=== PATIENT | female | born 1955 | race Caucasian/White ===

== ENCOUNTER → 2016-08-14 | Outpatient (CLI) | payer OTHER ==
--- NOTE | 2016-08-14 08:38 | US ---
Right Upper Quadrant Sonogram August 14, 2016 Indication: Right upper quadrant pain. Findings: The normal size liver, measuring 16.8 cm in the midaxillary line, has normal echogenicity a nd echotexture. No sonographic mass or biliary dilation. The gallbladder is normal. No intraluminal stones, sludge, wall thickening, or sonographic Ford sig n. Common bile duct is normal caliber (4 mm). Portal vein is patent. The abdominal aorta is normal caliber. The right kidney is unremarkable. No hydronephrosis. The right kidney measures 11.2 cm in length x 4. 9 x 3.7 cm axially. No free fluid. The imaged portions of the pancreatic neck, head, and central body are normal. The pa ncreatic tail is obscured by bowel gas. Impression: Normal. No cholelithiasis, biliary dilation, hydronephrosis or free fluid.
== END ==
LOC: FIMAGING 07:16
PROVIDERS: ATTEND Family Medicine
DX: R10.11 Right upper quadrant pain (principal)

== ENCOUNTER → 2016-10-01 | Outpatient (CLI) | payer OTHER | LOC: FIMAGING 07:15 | DX: Z12.31 Encounter for screening mammogram for malignant neoplasm of breast (principal) | CPT/HCPCS: G0202 ==

== ENCOUNTER → 2016-10-02 | Outpatient (CLI) | payer OTHER | LOC: FIMAGING 11:39 | DX: Z03.89 Encounter for observation for other suspected diseases and conditions ruled out (principal) | CPT/HCPCS: G0206 ==

== ENCOUNTER → 2017-03-10 | Outpatient (CLI) | payer OTHER | LOC: FIMAGING 07:45 | PROVIDERS: ATTEND Internal Medicine Gastroenterology | DX: R10.10 Upper abdominal pain, unspecified (principal); K21.9 Gastro-esophageal reflux disease without esophagitis; Z86.010 Personal history of colon polyps | CPT/HCPCS: 78227; A9537 ==

== ENCOUNTER → 2017-10-09 | Outpatient (CLI) | payer OTHER | LOC: FIMAGING 10:55 | PROVIDERS: ATTEND Family Medicine | DX: Z12.31 Encounter for screening mammogram for malignant neoplasm of breast (principal) ==

== ENCOUNTER → 2017-12-18 | Outpatient (CLI) | payer OTHER | LOC: FIMAGING 11:49 | PROVIDERS: ATTEND Podiatrist Primary Podiatric Medicine | DX: M76.61 Achilles tendinitis, right leg (principal) ==

== ENCOUNTER → 2018-04-08 | Outpatient (CLI) | payer OTHER ==
[~2018-04-08] MED LIST: BUPIVACAINE 0.25% 30 ML SDV ONE; LIDOCAINE 1% 300 MG/30 ML SDV ONE
== END ==
LOC: FIMAGING 10:33
PROVIDERS: ATTEND Radiology Diagnostic Radiology
PROC: 3E0U3GC Introduction of Other Therapeutic Substance into Joints, Percutaneous Approach (ICD-10-PCS; principal; 2018-04-08)
DX: S93.491A Sprain of other ligament of right ankle, initial encounter (principal)

== ENCOUNTER 2018-06-24 12:19 | Day surgery (SDC) | payer OTHER ==
[2018-06-24] MEDS ORDERED: LR 1,000 ML IV ONE (12:31)
[2018-06-24] MEDS ORDERED: BACITRACIN ZINC 14.2 GM OINTTUBE TP ONE (13:51)
[2018-06-24] MEDS ORDERED: MIDAZOLAM 2 MG/2 ML VIAL IVP ONE (14:28)
[2018-06-24] MEDS ORDERED: SCOPOLAMINE HYDROBROMIDE 1 MG/3 DAYS PATCH TD SCH (14:30)
--- NOTE | 2018-06-24 14:32 | PDANEPAE ---
ANE History of Present Illness 62 yo with right achilles tendon ANE Past Medical History - Cardiovascular History Hx Hypertension: Yes Hx Arrhythmias: No Hx Chest Pain: No Hx Coronary Artery / Peripheral Vascular Disease: No Hx CHF / Valvular Disease: No Hx Palpitations: No - Pulmonary History Hx COPD: No Hx Asthma/Reactive Airway Disease: No Hx Recent Upper Respiratory Infection: No Hx Oxygen in Use at Home: No Hx Sleep Apnea: No Sleep Apnea Screening Result - Last Documented: Negative - Neurologic History Hx Cerebrovascular Accident: No Hx Seizures: No Hx Dementia: No - Endocrine History Hx Diabetes: No - Renal History Hx Renal Disorders: No - Liver History Hx Hepatic Disorders: No - Neurological & Psychiatric Hx Hx Neurological and Psychiatric Disorders: No - Cancer History Hx Cancer: Yes 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 - Congenital Disorder History Hx Congenital Disorders: No - GI History Hx Gastrointestinal Disorders: Yes Gastrointestinal History Comment: Reflux - Other Health History Other Health History: none - Chronic Pain History Chronic Pain: No - Surgical History Prior Surgeries: none in last 5 yrs ANE Review of Systems Review of systems is: negative Review of Systems: - Exercise capacity METS (RN): 4 METS ANE Patient History - Allergies Allergies/Adverse Reactions: No Known Allergies Allergy (Verified 06/22/18 11:38) - Home Medications Home Medications: Lisinopril [Zestril 2.5 mg] 10/03/11 [Last Taken 06/23/18] Pitavastatin Calcium [Livalo] 10/03/11 [Last Taken 06/22/18] Cholecalciferol Vit D3 06/22/18 [Last Taken 06/23/18] Colestipol HCl 06/22/18 [Last Taken 06/23/18] Famotidine 06/22/18 [Last Taken 06/22/18] Ibuprofen 06/22/18 [Last Taken 06/19/18] Vitamin B Complex 06/22/18 [Last Taken 06/21/18] - NPO status NPO Since - Liquids (Date): 06/24/18 NPO Since - Liquids (Time): 08:30 NPO Since - Solids (Date): 06/23/18 NPO Since - Solids (Time): 19:00 - Anes Hx Anes Hx: no prior problems - Smoking Hx Smoking Status: Never smoked - Alcohol Use Alcohol Use: None - Family Anes Hx Family Hx Anesthesia Complications: none ANE Labs/Vital Signs - Vital Signs Blood Pressure: 137/92 Heart Rate: 74 Respiratory Rate: 16 O2 Sat (%): 98 Height: 167.64 cm Weight: 65.771 kg ANE Physical Exam - Airway Neck exam: FROM Mallampati Score: Class 1 Mouth exam: normal dental/mouth exam - Pulmonary Pulmonary: clear to auscultation - Cardiovascular Cardiovascular: regular rate and rhythym - ASA Status ASA Status: II
[2018-06-24] MEDS ORDERED: ceFAZolin 2 GM/DEXTROSE 100 ML IV ONE (15:15)
--- NOTE | 2018-06-24 15:19 | PDGENHP ---
History and Physical History and Physical: CHIEF COMPLAINT:~Right~ankle~pain, swelling and deformity HISTORY OF PRESENT ILLNESS:~ is a very pleasant 62 y.o.female who presents for right heel pain. She has had this pain for a long time and has tried different shoewear and three rounds of PRP injections with only minimal improvement. She is unable to do any jogging or running because of the pain. PAST MEDICAL HISTORY: N/a PAST SURGICAL HISTORY: No surgery on heel MEDS: none ALLERGIES: NKDA FAMILY HISTORY: Noncontributory REVIEW OF SYSTEMS: Pertinent positives seen in the history of present illness. SOCIAL HISTORY: non-smoker. Alcohol use:No denies~current exercise. PHYSICAL EXAMINATION: TTP at achilles insertion MRI reveals a large degree of~retrocalcaneal bursitis. ~There is some signal change in the substance of the Achilles tendon. ~The insertion does appear to be intact. IMPRESSION:~62 y.o.~female~p/w right insertional calcific Achilles tendinosis PLAN: She has failed conservative management and would like to proceed with surgical debridement. Nick Vigil MD
[2018-06-24] MEDS ORDERED: fentaNYL 100 MCG/2 ML INJ ONE (15:24)
[2018-06-24] MEDS ORDERED: PROPOFOL 200 MG/20 ML VIAL ONE (15:25)
[2018-06-24] MEDS: BUPIVACAINE 0.25% 10 ML SDV ONE ×2 (16:41→17:22)
[2018-06-24] MEDS: LIDOCAINE 1% 300 MG/30 ML SDV ONE ×2 (16:41→17:22)
--- NOTE | 2018-06-24 17:39 | POSTOPPROG ---
Post Op Note Date of Operation: 06/24/18 Surgeon: Nick Vigil Mental Health Social Worker: N/a Anesthesia: GET(General Endotracheal) Pre-op Diagnosis: Right Achilles Tendinopathy Post-op Diagnosis: Same Procedure: Right Achilles tendodebridement, Carol resection, enthesophyte resection Inf/Abcess present in the surg proc area at time of surgery?: No EBL: Minimal
[2018-06-24] MEDS ORDERED: fentaNYL 100 MCG/2 ML INJ IVP PRN (17:41)
[2018-06-24] MEDS ORDERED: HYDROmorphONE/DILAUDID 2 MG/ML INJ IVP PRN (17:41)
[2018-06-24] MEDS ORDERED: NALOXONE HCL 0.4 MG/ML INJ IVP PRN (17:41)
[2018-06-24] MEDS ORDERED: PROMETHAZINE HCL 25 MG/ML INJ IVP PRN (17:41)
--- NOTE | 2018-06-24 18:18 | POSTANESTH ---
Post Anesthetic Evaluation Cardiovascular Status: Normal, Stable Respiratory Status: Normal, Stable Level of Consciousness/Mental Status: Can Participate in Eval Pain Control: Adequate, Prn Tx Ordered Nausea/Vomiting Control: Adequate, Prn Tx Ordered Complications Possibly Related to Anesthesia: None Noted
[2018-06-24 19:33] VITALS: BP 119/95
[2018-06-25] MEDS ORDERED: PATCH REMOVAL 1 EA PATCH TD ONE (14:29)
--- NOTE | 2018-07-05 22:54 | SUROPNOTE ---
[facility] Operative Report - Surgery Orthopaedic Operative Note DOS: 06/24/2018 Attg: Nick Vigil Asst: None Preop Dx: Right Achilles insertional tendinopathy Postop dx: Same Procedure: Right achilles tendon debridement and repair, carlo excision Procedural Note: Consent was reviewed with the patient and she elected to proceed. The patient was taken to OR and transferred to the bed. Anesthesia was induced. A nonsterile tourniquet was applied to the Right thigh. The patient was placed prone. All bony prominences were padded. Neck extension and arm positions were checked. The leg was prepped and draped in typical fashion. A timeout was performed confirming the patient, procedure, antibiotic status, and surgical site. The leg was exsanguinated and the tourniquet raised. A longitudinal incision was created just medial to the midline from 2 cm proximal to the calcaneus, down to a centimeter past the insertion. The paratenon was identified, split, and preserved. The tendon underneath was examined. An enthesophyte was palpable underneath a layer of tendinous material. The tendon was reflected off of the enthesophyte, taking care to preserve the outer 20% of the Achilles tendon insertion on either side. An osteotome was used to transect the base of the spur and the spur was removed. A rongeur was used to smooth the base of the spur site. The middle 60% of the Achilles tendon was then reflected off of the calcaneus, revealing the Carol deformity underneath. The Achilles tendon at the insertion was quite thick and had areas of myxoid tissue and degenerative appearing regions. These areas were sharply excised while preserving healthier appearing tendinous material. While protecting the surrounding skin and tendon tissue, a sagittal saw was used to resected the Carol deformity. The edges of the resected surface were rongeured to prevent sharp corners from being prominent through the skin. The back of the calcaneus was smoothed. The wound was thoroughly irrigated. We then placed two Arthrex anchors 1 cm proximal to the insertion point. The suture bridge fibers were placed through the Achilles tendon and then brought down in a crisscross pattern to two more anchors at the level of the original insertion. Tension was found to be adequate without over tightening the Achilles. A fiberwire suture was used to repair the central cut of the Achilles tendon. The paratenon was closed over the Achilles tendon using 3-O monocryl suture. 3- O Vicrylsuture was used to close the subcutaneous skin. 3-O nylon was used to close the skin. There was minimal tension on the skin at the time of closure. The foot was kept plantarflexed. A sterile dressing was placed on the wound. A short leg splint was applied. The patient was taken to the PACU for further observation and monitoring. Count was correct at the conclusion of the case. Implants: Arthrex Suturebridge Complications: None EBL: Minimal Drain: None
== END 2018-06-24 19:25 | disposition home or self-care (01) ==
LOC: FSGY 12:19
PROVIDERS: ATTEND Orthopaedic Surgery
DX: M76.61 Achilles tendinitis, right leg (principal)
CPT/HCPCS: C1713; J0690; J2250; J2704; J3010